=== PATIENT | male | born 1995 | race Caucasian/White ===

== ENCOUNTER 2017-12-04 10:03 | Emergency (ER) | payer OTHER ==
[~2017-12-04] VITALS: Ht 172.7 cm; Wt 68.0 kg
[2017-12-04 10:19] VITALS: BP 121/76
== END 2017-12-04 11:13 | disposition home or self-care (01) ==
LOC: ER 10:03
DX: T15.01XA Foreign body in cornea, right eye, initial encounter (principal); Z88.1 Allergy status to other antibiotic agents; X58.XXXA Exposure to other specified factors, initial encounter; Y93.89 Activity, other specified; Y92.89 Other specified places as the place of occurrence of the external cause; Y99.8 Other external cause status

== ENCOUNTER 2019-09-29 20:21 | Emergency (ER) | payer OTHER ==
[~2019-09-29] VITALS: Ht 175.3 cm; Wt 68.0 kg
[2019-09-29 23:23] VITALS: BP 181/81
== END 2019-09-30 | disposition home or self-care (01) ==
LOC: ER 20:21
DX: J02.8 Acute pharyngitis due to other specified organisms (principal); B97.89 Other viral agents as the cause of diseases classified elsewhere
CPT/HCPCS: 87070; 87804; 87880

== ENCOUNTER 2020-04-24 07:15 | Emergency (ER) | payer OTHER ==
[~2020-04-24] VITALS: Ht 172.7 cm; Wt 68.0 kg
[2020-04-24 07:46] VITALS: BP 149/92
[2020-04-24] MEDS ORDERED: IBUPROFEN 800 MG TAB PO ONE (08:15)
[2020-04-24] MEDS ORDERED: LIDOCAINE 1% HCL (LOCAL ANESTH.) INJ 20ML MDV IJ ONE (08:15)
== END 2020-04-24 09:24 | disposition home or self-care (01) ==
LOC: ER 07:15
DX: S62.636B Displaced fracture of distal phalanx of right little finger, initial encounter for open fracture (principal); Z88.1 Allergy status to other antibiotic agents; X58.XXXA Exposure to other specified factors, initial encounter; Y93.89 Activity, other specified; Y92.89 Other specified places as the place of occurrence of the external cause; Y99.8 Other external cause status
CPT/HCPCS: 29130; 73130; 99283; J2001

== ENCOUNTER 2021-01-26 23:54 | Emergency (ER) | payer OTHER | END 2021-01-27 00:23 | LOC: ER 23:54 | DX: Z53.21 Procedure and treatment not carried out due to patient leaving prior to being seen by health care provider (principal) ==

== ENCOUNTER 2021-05-15 23:10 | Emergency (ER) | payer OTHER ==
[~2021-05-15] VITALS: Ht 172.7 cm; Wt 72.6 kg
[2021-05-15] MEDS ORDERED: TETANUS-DIPTH-ACEL PERTUSSIS 0.5ML SYR Tdap IM ONE (23:45)
[2021-05-16] MEDS ORDERED: TRAM50TA2 PO (00:56)
[2021-05-16] MEDS ORDERED: BUTA-280 OR (00:57)
[2021-05-16] MEDS ORDERED: IBUP800T27 PO (00:58)
[2021-05-16] MEDS ORDERED: traMADol HCL 50 MG TAB PO ONE (01:00)
[2021-05-16 02:37] VITALS: BP 125/78
== END 2021-05-16 02:55 | disposition home or self-care (01) ==
LOC: ER 23:10
DX: S01.01XA Laceration without foreign body of scalp, initial encounter (principal); Z88.1 Allergy status to other antibiotic agents; W18.00XA Striking against unspecified object with subsequent fall, initial encounter; Y93.89 Activity, other specified; Y92.89 Other specified places as the place of occurrence of the external cause; Y99.8 Other external cause status
CPT/HCPCS: 12001; 70450; 90471; 90715; 99284; J2001

== ENCOUNTER 2022-10-02 19:35 | Emergency (ER) | payer OTHER ==
[~2022-10-02] VITALS: Ht 170.2 cm; Wt 72.4 kg
[~2022-10-02 19:35] MED LIST: IBUP-1456 PO
[2022-10-02] MEDS ORDERED: CYCL-837 PO (21:28)
[2022-10-02] MEDS ORDERED: IBUP-1455 PO (21:28)
[2022-10-02 21:42] VITALS: BP 145/93
== END 2022-10-02 21:45 | disposition home or self-care (01) ==
LOC: ER 19:36
DX: S16.1XXA Strain of muscle, fascia and tendon at neck level, initial encounter (principal); S09.8XXA Other specified injuries of head, initial encounter; Z88.1 Allergy status to other antibiotic agents; W01.0XXA Fall on same level from slipping, tripping and stumbling without subsequent striking against object, initial encounter; Y93.89 Activity, other specified; Y92.89 Other specified places as the place of occurrence of the external cause; Y99.8 Other external cause status
CPT/HCPCS: 70450; 72125

== ENCOUNTER 2024-08-10 07:21 | Emergency (ER) | payer SELFPAY ==
[~2024-08-10] VITALS: Ht 172.7 cm; Wt 68.9 kg
[~2024-08-10 07:21] MED LIST changes: +CYCL-837 PO; +IBUP-1455 PO
[2024-08-10 07:26] VITALS: TEMP 98.1
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
[2024-08-10 09:16] VITALS: BP 134/88; PULSE 101; RESP 18; O2SAT 97
== END 2024-08-10 10:02 | disposition home or self-care (01) ==
LOC: ER 07:21
DX: S01.01XA Laceration without foreign body of scalp, initial encounter (principal); Z79.1 Long term (current) use of non-steroidal anti-inflammatories (NSAID); Z88.1 Allergy status to other antibiotic agents; Y04.0XXA Assault by unarmed brawl or fight, initial encounter; Y93.89 Activity, other specified; Y92.89 Other specified places as the place of occurrence of the external cause; Y99.8 Other external cause status
CPT/HCPCS: 12002

== ENCOUNTER 2024-08-20 14:54 | Emergency (ER) | payer MEDICAID, OTHER ==
[~2024-08-20] VITALS: Ht 172.7 cm; Wt 66.0 kg
[2024-08-20 15:37] VITALS: BP 160/98; PULSE 72; RESP 18; TEMP 100.1; O2SAT 96
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
[2024-08-20] MEDS: ACETAMINOPHEN 500 MG TAB or CAP PO ONE (16:08)
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
[2024-08-20] MEDS ORDERED: IBUP-1456 PO (16:35)
[2024-08-20] MEDS ORDERED: METH-1182 PO (16:35)
== END 2024-08-20 16:41 | disposition home or self-care (01) ==
LOC: ER 15:00
DX: S00.531A Contusion of lip, initial encounter (principal); S10.93XA Contusion of unspecified part of neck, initial encounter; S20.219A Contusion of unspecified front wall of thorax, initial encounter; Z79.1 Long term (current) use of non-steroidal anti-inflammatories (NSAID); Z88.1 Allergy status to other antibiotic agents; Y04.0XXA Assault by unarmed brawl or fight, initial encounter; Y93.89 Activity, other specified; Y92.89 Other specified places as the place of occurrence of the external cause; Y99.8 Other external cause status
CPT/HCPCS: 70450; 71046